=== PATIENT | female | born 1950 | race Caucasian/White ===

== ENCOUNTER → 2023-05-20 08:37 | Outpatient (REF) | payer BC, SELFPAY ==
--- NOTE | 2023-05-20 08:46 | CA_ITS ---
Transthoracic Echocardiogram Patient (Last, First, Middle): Melinda Cox, Gender: Female Date of : 1950 Age: 73 Procedure Date: 05/20/2023 Procedure Type: Transthoracic Echocardiogram Location: [facility] Height: 170.18 cm Weight: 81.65 kg BSA: 1.93 m2 Heart Rate: bpm BP: 110 / 70 mmHg Staffing Assistant: DENISE Referring MD: Leeanna MONIQUE Symptoms: R01.1 MURMUR Study Quality: Adequate ECG Rhythm: Sinus Conclusions: - The left ventricular systolic function is normal. The calculated ejection fraction is 65% by biplane method. - No obvious valvular pathology seen on this study. Findings Left Ventricle Normal left ventricular cavity size. There is mildly increased left ventricular wall thickness. The left ventricular systolic function is normal. The calculated ejection fraction is 65% by biplane method. There is no evidence of regional wall motion abnormalities. Diastolic function is normal for age. Right Ventricle Normal right ventricular cavity size and systolic function. Atria Both atria are normal in size. Aortic Valve There is a normal trileaflet aortic valve. There is no aortic valve stenosis. There is no aortic valve regurgitation. Mitral Valve The mitral valve appears normal. There is trace mitral valve regurgitation. There is no mitral valve stenosis. Pulmonic Valve The pulmonic valve is likely normal. Tricuspid Valve Normal tricuspid valve structure. There is mild tricuspid valve regurgitation. There is no evidence of pulmonary hypertension. Great Vessels The asc aorta is normal in size. Venous The inferior vena cava is mildly dilated and collapses greater than 50% with inspiration. Pericardium/Pleural There is no evidence of pericardial effusion. Prior Study Comparison No prior study available for comparison. Recommendations, Care & Conclusions No obvious valvular pathology seen on this study. Measurements 2D Linear Measurements IVSd: 1.06 0.6-0.9/0.6-1.0 cm LVIDd: 4.55 3.9-5.3/4.2-5.9 cm LVIDd Index: 2.36 2.4-3.2/2.2-3.1 cm/m2 LVIDs: 2.48 2.0-3.6 cm LVPWd: 1.11 0.7-1.1 cm LA Diam: 3.20 2.7-3.8/3.0-4.0 cm LAIDs Index: 1.66 1.5-2.3 cm/m2 LV Mass: 217.64 67-162/88-224 g LV Mass Index: 112.77 43-95/49-115 g/m2 LVOT Diam: 2.20 3.0+(-)1.3 cm 2D Systolic Function EF 4C: 63.70 >55% EF 2C: 64.60 >55% EF BiP: 65.20 >55% Mitral Valve MV Pk E: 0.56 MV PK A: 0.75 MV Decel Time: 352.00 E/A: 0.70 E'Lateral: 7.40 E'Medial: 6.64 E/E' Med: 8.40 E/E' Lat: 7.50 PHT: 103.00 MVA PHT: 2.14 Decel Faulk: 1.58 Aortic Valve AoV Pk Jalil: 1.34 AoV Mn Jalil: 0.95 AoV VTI: 0.32 AoV Pk Grad: 7.00 Aov Mn Grad: 4.00 ZEFERINO Cont.VTI: 2.51 LVOT LVOT Pk Jalil: 0.88 LVOT Mn Jalil: 0.61 LVOT VTI: 0.21 LVOT Pk Grad: 3.00 LVOT Mn Grad: 2.00 LVOT Diam: 2.20 LVOT Area: 3.80 Diastolic Function MV Pk E: 0.56 MV Pk A: 0.75 E/A: 0.70 E'Medial: 6.64 E/E' Med: 8.40 E' Laterial: 7.40 E/E' Lat: 7.50 Right Ventricle TAPSE (mm): 21.30 TVS' Jalil: 11.50 Tricuspid Valve TR Pk Jalil: 1.91 TR Pk Grad: 15.00 RA Press: 8.00 RVSP: 23.00 Great Vessels Aorta Sinus of Valsalva: 3.71 2.0-3.[address] Ridge: 3.39 1.7-3.4 cm Ao Asc: 3.70 2.1-3.4 cm Updated in Other Vendor System with Status of Final Michel Gordon MD electronically signed on 05/20/2023 4:01:58 PM with status of Final
== END ==
LOC: HO.CARD 08:37
PROVIDERS: Visit Provider Physician Assistant Medical
DX: R01.1 Cardiac murmur, unspecified (principal)
CPT/HCPCS: 93306